=== PATIENT | male | born 1960 | race Caucasian/White ===

== ENCOUNTER 2019-09-21 13:07 | Emergency (ER) | payer OTHER ==
[~2019-09-21] VITALS: Ht 180.3 cm; Wt 119.7 kg
[2019-09-21 13:10] VITALS: BP 180/100; Ht 180.3 cm; Wt 119.7 kg
== END 2019-09-21 16:57 | disposition home or self-care (01) ==
LOC: ED 13:07
DX: M25.511 Pain in right shoulder (principal); I10 Essential (primary) hypertension
CPT/HCPCS: J1885